=== PATIENT | male | born 1965 ===

== ENCOUNTER 2018-10-20 16:59 | Emergency (ER) | payer SELFPAY ==
[2018-10-20 17:21] VITALS: O2SAT 100
--- NOTE | 2018-10-20 18:42 | C.PDOC ---
History Of Present Illness 52 y/o male, with history of alcoholism, presents to ED for evaluation. Patient reports he is feeling tremors. States he stopped drinking a few days ago and hes been feeling weak and dizzy. Patient has no other medical complaints at this time. Time Seen by Provider: 10/20/18 18:08 Chief Complaint (Nursing): Substance Abuse History Per: Patient History/Exam Limitations: no limitations Onset/Duration Of Symptoms: Days Current Symptoms Are (Timing): Still Present Past Medical History Reviewed: Historical Data, Nursing Documentation, Vital Signs Vital Signs: Last Vital Signs Temp 99.2 F 10/20/18 17:17 Pulse 107 H 10/20/18 17:17 Resp 18 10/20/18 17:17 BP 169/102 H 10/20/18 17:17 Pulse Ox 100 10/20/18 17:17 Primary Care Provider: FAMILY PROVIDER,NO Family History: States: No Known Family Hx - Social History Hx Alcohol Use: Yes Hx Substance Use: No Review Of Systems Except As Marked, All Systems Reviewed And Found Negative. Constitutional: Positive for: Weakness. Negative for: Fever, Chills Cardiovascular: Negative for: Chest Pain Respiratory: Negative for: Shortness of Breath Gastrointestinal: Negative for: Nausea, Vomiting, Abdominal Pain Musculoskeletal: Negative for: Neck Pain Neurological: Positive for: Dizziness Psych: Positive for: Other (alcohol abuse) Physical Exam - Physical Exam Appears: Non-toxic, No Acute Distress Skin: Warm, Dry Head: Normacephalic Eye(s): bilateral: PERRL, EOMI Oral Mucosa: Moist Neck: Supple Cardiovascular: Rhythm Regular, No Murmur Respiratory: Normal Breath Sounds, No Rales, No Rhonchi, No Wheezing Gastrointestinal/Abdominal: Soft, No Tenderness Extremity: Other (minimal tremors noted) Extremity: Bilateral: Normal Color And Temperature, Normal ROM Neurological/Psych: Oriented x3, Normal Speech ED Course And Treatment - Laboratory Results Result Diagrams: 10/20/18 18:53 10/20/18 18:53 O2 Sat by Pulse Oximetry: 100 (RA) Pulse Ox Interpretation: Normal Medical Decision Making Medical Decision Making: suspect etoh wd. Plan: --Labs --UA seen by crisis now refuses detox. notifed by rn on dc pt with tachycardia and increasing tremors librium dosed. spoke ot pt. notified of labs. suspect cirrhosis lipase <3x upper limit nomrla. no abd ttp/. will ama as pt at risk for etoh w/d Disposition - Disposition Referrals: [facility] [Outside] [facility] [Outside] Francisco Chavez MD [Staff Provider] - Disposition: AGAINST MEDICAL ADVICE Disposition Time: 20:00 Condition: STABLE Additional Instructions: you are refusing detox. return to any er wiht worsening. please follow up in clinic. discuss your labs with the specialist. Instructions: Cirrhosis, Alcohol Abuse and Alcoholism (DC), Leaving Against Medical Advice Forms: [employer] (H[place]er) - Clinical Impression Clinical Impression: Alcohol withdrawal, Cirrhosis - Scribe Statement The provider has reviewed the documentation as recorded by the Niaibarianne Montano Provider Attestation: All medical record entries made by the Niaibarianne were at my direction and personally dictated by me. I have reviewed the chart and agree that the record accurately reflects my personal performance of the history, physical exam, medical decision making, and the department course for this patient. I have also personally directed, reviewed, and agree with the discharge instructions and disposition.
[2018-10-20 19:01] LABS: BASO % 0.4 % (0.0-2.0); EOS % 0.3 % (0.0-4.0); HEMOGLOBIN 13.6 g/dL (12.0-18.0); LYMPH # 1.2 K/uL (1.0-4.3); LYMPH % 11.7 % (20.0-40.0); MEAN CELL VOLUME 99.5 fL (80.0-94.0); MEAN CORPUSCULAR HEMOGLOBIN 34.2 pg (27.0-31.0); MEAN CORPUSCULAR HGB CONC 34.4 g/dL (33.0-37.0); MEAN PLATELET VOLUME 9.8 fL (7.2-11.7); MONO # 0.6 K/uL (0.0-0.8); MONO % 5.6 % (0.0-10.0); NEUT # 8.4 K/uL (1.8-7.0); RBC 3.97 Mil/uL (4.40-5.90); RED CELL DISTRIBUTION WIDTH 15.2 % (11.5-14.5); WHITE BLOOD COUNT 10.3 K/uL (4.8-10.8)
[2018-10-20 19:15] LABS: URINE BILIRUBIN 1+ (NEGATIVE); URINE CLARITY Hazy (Clear); URINE GLUCOSE (UA) NORMAL (Normal); URINE LEUKOCYTE ESTERASE NEG Leu/uL (Negative); URINE PROTEIN 1+ mg/dL (NEGATIVE)
[2018-10-20 19:18] LABS: BARBITURATES, UR NEGATIVE (NEGATIVE); BENZODIAZEPINES, UR NEGATIVE (NEGATIVE); OPIATES, UR NEGATIVE (NEGATIVE); PHENCYCLIDINE, UR NEGATIVE (NEGATIVE)
[2018-10-20 19:26] LABS: ALB/GLOB RATIO 0.9 (1.0-2.1); ALBUMIN 4.8 g/dL (3.5-5.0); ALT/SGPT 67 U/L (21-72); AST/SGOT 238 U/L (17-59); BLOOD UREA NITROGEN 13 mg/dL (9-20); CALCIUM 10.3 mg/dl (8.6-10.4); GFR NON-AFRICAN AMERICAN > 60; LIPASE 388 U/L (23-300)
[2018-10-20 19:39] LABS: URINE BLOOD TRACE (NEGATIVE); URINE COLOR YELLOW (YELLOW)
[2018-10-20 20:03] VITALS: BP 168/95; PULSE 102; RESP 20; TEMP 99.4
== END 2018-10-20 20:20 | disposition left against medical advice (07) ==
LOC: C.ER 16:59
DX: F10.239 Alcohol dependence with withdrawal, unspecified (principal); Y90.0 Blood alcohol level of less than 20 mg/100 ml; K74.60 Unspecified cirrhosis of liver
CPT/HCPCS: 80053; 81001; 83690; 83735; 84100; 85025; 99285; G0480